=== PATIENT | male | born 1960 | race Caucasian/White ===

== ENCOUNTER 2017-06-12 14:28 | Inpatient (IN) | payer OTHER ==
[~2017-06-12] VITALS: Ht 175.3 cm; Wt 112.4 kg
[2017-06-12 15:17] VITALS: BP 137/85; PULSE 84; RESP 16; TEMP 97.9; O2SAT 98
--- NOTE | 2017-06-12 16:40 | PD ---
HPI Chief Complaint: Psychiatric Symptoms Time Seen by Provider: 14:45 Travel History International Travel<30 days: No Contact w/Intl Traveler<30days: No Traveled to known affect area: No History of Present Illness HPI 56-year-old male presents under Yeh act from the [place]. According to the Yeh act report the " states he is ready to , has a plan to shoot himself in the head, has a gun, gave the gun to his sister. Had previous attempt in the late 80s went to [facility] states all medications have been attempted , states psychiatry wanted to try electric shock, and "I freaked."" The patient does admit to feeling suicidal and does want to shoot himself in the head. He has history of suicidal attempt. He does state he did give his sister a gun. He denies homicidal ideations. Denies visual or auditory hallucinations. Reports smoking marijuana legally in [place]. Denies other illicit drug use. Duration is unknown. Severity is severe. No known aggravating or relieving factors. Has no other emergent medical complaints. History of hypertension. Says he hasn't taken medications for 3 years. He is not have an established primary care provider. No other modifying factors or associated signs and symptoms. PFSH Past Medical History Cardiovascular Problems: Yes ([place] in [place] w[place], [place] w/st[place] placement) Social History Tobacco Use: No Review of Systems Except as stated in HPI: all other systems reviewed are Neg Physical Exam Narrative GENERAL: Well-nourished, well-developed male patient, in no acute distress SKIN: Warm and dry. HEAD: Atraumatic. Normocephalic. EYES: Pupils equal and round. ENT: Mucosa pink and moist. NECK: Supple. Trachea midline. CARDIOVASCULAR: Regular rate and rhythm. No murmur appreciated. RESPIRATORY: No accessory muscle use. Clear to auscultation. Breath sounds equal bilaterally. GASTROINTESTINAL: Abdomen soft, non-tender, nondistended. Hepatic and splenic margins not palpable. Bowel sounds are active 4 quadrants. MUSCULOSKELETAL: No obvious deformities. No clubbing. No cyanosis. No edema. NEUROLOGICAL: Awake and alert. Oriented 3. No obvious cranial nerve deficits. Motor grossly within normal limits. Normal speech. Moves all extremities. 5/5 strength to all extremities. PSYCHIATRIC: No delusional thought processes. No hallucinations. Data Data Last Documented VS Vital Signs Date Time Temp Pulse Resp B/P (MAP) Pulse Ox O2 Delivery O2 Flow Rate FiO2 06/12/17 15:17 97.9 84 16 137/85 (102) 98 Room Air Orders Orders Complete Blood Count With Diff (06/12/17 14:45) Comprehensive Metabolic Panel (06/12/17 14:45) Psych Screen (06/12/17 14:45) Drug Screen, Random Urine (06/12/17 14:45) Alcohol (Ethanol) (06/12/17 14:45) Salicylates (Aspirin) (06/12/17 14:45) Tylenol (Acetaminophen) (06/12/17 14:45) MDM Medical Decision Making Medical Screen Exam Complete: Yes Emergency Medical Condition: Yes Medical Record Reviewed: Yes Differential Diagnosis Medical clearance for psychiatric evaluation, depression, suicidal ideation Narrative Course Patient presents under a Yeh act. Physical examination and vital signs are essentially unremarkable. Patient has no medical complaints to report. Psych screen has been ordered. If the laboratory results are unremarkable, the patient will be medically cleared for psychiatric evaluation and disposition. Diagnosis Primary Impression: Medical clearance for psychiatric admission Condition: Stable Shama Randall [facility] Jun 12, 2017 16:40
[2017-06-12 17:30] VITALS: BP 133/77; PULSE 70; RESP 20; O2SAT 97
[2017-06-12 17:31] LABS: AUTOMATED NEUTROPHIL # 7.6 TH/MM3 (1.8-7.7); BASOPHIL # 0.1 TH/MM3 (0-0.2); BASOPHIL % 0.5 % (0.0-2.0); EOSINOPHIL # 0.1 TH/MM3 (0-0.4); EOSINOPHIL % 1.2 % (0.0-4.0); HEMATOCRIT 49.4 % (39.0-51.0); HEMOGLOBIN 17.3 GM/DL (13.0-17.0); LYMPH % 24.1 % (9.0-44.0); LYMPHOCYTE # 2.7 TH/MM3 (1.0-4.8); MEAN CELL VOLUME 96.2 FL (80.0-100.0); MEAN CORPUSCULAR HEMOGLOBIN 33.7 PG (27.0-34.0); MEAN PLATELET VOLUME 8.3 FL (7.0-11.0); MONO % 5.9 % (0.0-8.0); MONOCYTE # 0.6 TH/MM3 (0-0.9); NEUT % 68.3 % (16.0-70.0); PLATELET COUNT 197 TH/MM3 (150-450); RED BLOOD COUNT 5.13 MIL/MM3 (4.50-5.90); RED CELL DISTRIBUTION WIDTH 13.5 % (11.6-17.2); WHITE BLOOD COUNT 11.1 TH/MM3 (4.0-11.0)
[2017-06-12 17:56] LABS: ALBUMIN 4.1 GM/DL (3.4-5.0); ALT (GPT) 37 U/L (12-78); AST (GOT) 37 U/L (15-37); BICARBONATE 26.3 MEQ/L (21.0-32.0); BLOOD UREA NITROGEN 12 MG/DL (7-18); CALCIUM 9.7 MG/DL (8.5-10.1); CHLORIDE 105 MEQ/L (98-107); CREATININE 1.01 MG/DL (0.60-1.30); GLOMERULAR FILTRATION RATE 76 ML/MIN (>89); GLUCOSE,RANDOM 86 MG/DL (74-106); SODIUM (NA) 140 MEQ/L (136-145)
[2017-06-12 18:02] LABS: ALKALINE PHOSPHATASE 106 U/L (45-117); TOTAL BILIRUBIN ADULT 0.8 MG/DL (0.2-1.0); TOTAL PROTEIN 7.9 GM/DL (6.4-8.2)
[2017-06-12 18:12] LABS: ACETAMINOPHEN LESS THAN 2.0 MCG/ML (10.0-30.0)
[2017-06-12] MEDS ORDERED: LORazepam 1 MG TAB PO PRN (20:45)
[2017-06-12] MEDS ORDERED: LORazepam 2 MG/ML VIAL IM PRN (20:45)
[2017-06-12] MEDS ORDERED: ACETAMINOPHEN 325 MG TAB PO PRN (20:45)
[2017-06-12] MEDS ORDERED: MAGNESIUM HYDROXIDE SUSP 30 ML CUP PO PRN (20:45)
[2017-06-12] MEDS ORDERED: ALUMINUM/MAGNESIUM/SIMETH 30 ML CUP PO PRN (20:45)
[2017-06-12] MEDS ORDERED: REMOVE OLD NICOTINE PATCH T-DERMAL SCH (21:00)
[2017-06-12] MEDS ORDERED: traZODone HCL 100 MG TAB PO SCH (21:00)
[2017-06-12 22:20] VITALS: BP 146/80; PULSE 78; RESP 16; TEMP 98.1; O2SAT 96
[2017-06-13 05:40] VITALS: BP 97/55; PULSE 69; RESP 16; TEMP 98; O2SAT 95
[2017-06-13] MEDS ORDERED: NICOTINE 21 MG/24 HR PATCH T-DERMAL SCH (09:00)
[2017-06-13 10:40] LABS: BICARBONATE 24.6 MEQ/L (21.0-32.0); BLOOD UREA NITROGEN 15 MG/DL (7-18); CALCIUM 9.1 MG/DL (8.5-10.1); CHLORIDE 107 MEQ/L (98-107); CHOLESTEROL 126 MG/DL (120-200); CREATININE 1.05 MG/DL (0.60-1.30); GLOMERULAR FILTRATION RATE 73 ML/MIN (>89); GLUCOSE,RANDOM 119 MG/DL (74-106); SODIUM (NA) 140 MEQ/L (136-145); TRIGLYCERIDES 181 MG/DL (42-150)
[2017-06-13 10:43] LABS: CHOLESTEROL/ HDL RATIO 4.21 RATIO; HDL CHOLESTEROL 29.9 MG/DL (40.0-60.0); LDL CHOLESTEROL 60 MG/DL (0-99)
--- NOTE | 2017-06-13 13:04 | HHI.HP ---
Provisional Diagnosis Admission Date Jun 12, 2017 at 20:04 [place] I. 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 Express and informed consent means consent voluntarily given in writing, by a competent person, after sufficient explanation and disclosure of the subject matter involved to enable the person to make a knowing and willful decision without any element of force, fraud, deceit, duress, or other form of constraint or coercion. This person is 18 years of age or older, is not now known to be incompetent to consent to treatment with a guardian advocate, and does not have a health care surrogate or proxy currently making medical treatment decisions. I have found this person to be one of the following: [] Competent to provide express and informed consent, as defined above, for voluntary admission to this facility and is competent to provide express and informed consent for treatment. He/she has the consistent capacity to make well reasoned, willful, and knowing decisions concerning his or her medical or mental health treatment. The person fully and consistently understands the purpose of the admission for examination/placement and is fully capable of personally exercising all rights assured [place] [] Incompetent to provide express and informed consent to voluntary admission, and this is incompetent to provide express and informed consent to treatment. The person must be transferred to involuntary status and a petition for a guardian advocate filed with the Circuit Court. [xxxx] Refusing to provide express and informed consent to voluntary admission but is competent to provide express and informed consent for treatment. The person must be discharged or transferred to involuntary status. Form shall be completed within 24 hours of a person's arrival at the receiving facility and filed in the clinical record of each person: 1. Admitted on a voluntary basis 2. Permitted to provide express and informed consent to his/her own treatment 3. Allowed to transfer from involuntary to voluntary status 4. Prior to permitting a person to consent to his or her own treatment after having been previously found incompetent to consent to treatment. History of Present Illness Capacity: Lacks Capacity (patient lacks capacity to sign for admission, patient has capacity to sign for medications and treatment) Psych Chief Complaint: depression with suicidal ideation intent and plan HPI Patient is a 56-year-old white male who comes here under Yeh act by the [place] [employer] Dana Tang dated 06/12/13@1330 p.m. the document reviewed and agreed with sitting major depressive disorder states she is ready to has plan to shoot himself in the head as a gun give the done to assist her had previous attempts in the past late 80s went to [facility] states all medications have been attempted states psychiatry wanted to try electric shock" I freaked" patient seen screened in the ED urine toxicology positive for marijuana. At the present time patient sitting quietly in his room on 2600 nurse hermila present throughout session. Patient gives of multiple year history of depression going back to young adulthood. He has been seen in the for this. Patient is a [employer] and also works for the [employer] after. He states he is seen by multiple psychiatrist is been placed on trials of multiple antidepressants including Elavil and Seroquel without significant success. He denies prior inpatient hospitalization. He does acknowledge a past history of opiate abuse 24 detox in the late 80s or early 90s area he denies any more recent alcohol use but acknowledges occasional marijuana use. Patient states he was working the [place] area until he quit his job a year or 2 ago. Took prison money and went to [place]. He was running out of money there and return home to [place] to his house is being foreclosed and had no energy and no water. At that time his depression became worse with hypersomnia with decreased energy. Marked a.m. anergy. States marked increased anhedonia. Decreased concentration and attention decreased tolerance with increased irritability, denied any other substance use except the marijuana. Denied any voices or visions with this. He did acknowledge increased suicidal ideation intent to the point he would take the suicide pill if offered. He states he has had suicide ideation in the past. He did have her friend who recommended that he relocated here to [place] to be near his mother sister and other relatives. He drove down here with a loaded weapon in his car but they given to his sister. He arrived here in town with of the last 48 hours. At this time patient does meet criteria for involuntary psychiatric hospitalization on the Yeh act I'll do first opinion request second opinion. I feel does have capacity to sign for his medications. Discussed various medication options will start patient on Lexapro 10 mg the morning and Abilify 10 mg in the evening. Patient did give us permission to speak with his family need to discuss with them treatment treatment options for this gentleman. Review of Systems Constitutional: DENIES: Diaphoretic episodes, Fatigue, Fever, Weight gain, Weight loss, Chills, Dizziness, Change in appetite, Night Sweats Endocrine: DENIES: Heat/cold intolerance, Polydipsia, Polyuria, Polyphagia Eyes: DENIES: Blurred vision, Diplopia, Eye inflammation, Eye pain, Vision loss , Photosensitivity, Double Vision Ears, nose, mouth, throat: DENIES: Tinnitus, Hearing loss, Vertigo, Nasal discharge, Oral lesions, Throat pain, Hoarseness, Ear Pain, Running Nose, Epistaxis, Sinus Pain, Toothache, Odynophagia Respiratory: DENIES: Apneas, Cough, Snoring, Wheezing, Hemoptysis, Sputum production, Shortness of breath Cardiovascular: DENIES: Chest pain, Palpitations, Syncope, Dyspnea on Exertion , PND, Lower Extremity Edema, Orthopnea, Claudication Gastrointestinal: DENIES: Abdominal pain, Black stools, Bloody stools, Constipation, Diarrhea, Nausea, Vomiting, Difficulty Swallowing, Anorexia Genitourinary: DENIES: Sexual dysfunction, Urinary frequency, Urinary incontinence, Urgency, Hematuria, Dysuria, Nocturia, Penile Discharge, Testicular Pain, Testicular Swelling Musculoskeletal: DENIES: Joint pain, Muscle aches, Stiffness, Joint Swelling, Back pain, Neck pain Integumentary: DENIES: Abnormal pigmentation, Nail changes, Pruritus, Rash Hematologic/lymphatic: DENIES: Bruising, Lymphadenopathy Immunologic/allergic: DENIES: Eczema, Urticaria Psychiatric: COMPLAINS OF: Depression, Suicidal Ideation Past Psych History Psychological trauma history Denies Violence risk - others (6 mos) Low Violence risk - self (6 mos) High Substance Abuse History Drugs/Alcohol past 12 months Past history opiates abuse many years ago now and occasional marijuana user Past Family Social History Coded Allergies: No Known Allergies (Unverified , 06/12/17) Past Medical History Patient history heart attack in the past with triple bypass in 2012 Current Medications Medications (Trade) Dose Ordered Sig/Juan Route Start Time Stop Time Status Last Admin (Desyrel) 100 mg HS PO 06/12/17 21:00 06/12/17 21:35 (Ativan) 1 mg Q6H PRN PO 12/28/17 20:45 06/12/17 21:35 (Ativan Inj) 1 mg Q6H PRN IM 06/12/17 20:45 (Tylenol) 650 mg Q4H PRN PO 06/12/17 20:45 (Milk Of Magnesia Liq) 30 ml DAILY PRN PO 06/12/17 20:45 (Mag-Al Plus Susp Liq) 30 ml Q6H PRN PO 06/12/17 20:45 (Habitrol 21 Mg Patch.24 Hr) 1 patch DAILY T-DERMAL 06/13/17 09:00 06/13/17 09:00 Miscellaneous Information 1 HS T-DERMAL 06/12/17 21:00 Family Psych History Patient states father may have been depressed Social History Patient single was becoming homeless now relocating attempt to be close with family Patient's Strengths (min. 2) Patient verbal labile axis healthcare calm and cooperative Physical Exam Patient seen and screened in ED exam reviewed and agreed with. Patient sitting quietly in his room is in no acute distress, no rash or distress, no complaints of abdominal pain. Patient moves all 4 extremities without difficulty no abnormal motor movements noted Vital Signs Vital Signs Date Time Temp Pulse Resp B/P (MAP) Pulse Ox O2 Delivery O2 Flow Rate FiO2 06/13/17 05:40 98.0 69 16 97/55 (69) 95 06/12/17 17:30 Room Air I/O 06/13/17 06/13/17 06/14/17 08:00 16:00 00:00 Intake Total 720 ml Balance 720 ml Lab Results Test 06/12/17 15:50 06/12/17 17:05 06/13/17 08:35 Urine Opiates Screen NEG Urine Barbiturates Screen NEG Urine Amphetamines Screen NEG Urine Benzodiazepines Screen NEG Urine Cocaine Screen NEG Urine Cannabinoids Screen POS White Blood Count 11.1 TH/MM3 Red Blood Count 5.13 MIL/MM3 Hemoglobin 17.3 GM/DL Hematocrit 49.4 % Mean Corpuscular Volume 96.2 FL Mean Corpuscular Hemoglobin 33.7 PG Mean Corpuscular Hemoglobin Concent 35.0 % Red Cell Distribution Width 13.5 % Platelet Count 197 TH/MM3 Mean Platelet Volume 8.3 FL Neutrophils (%) (Auto) 68.3 % Lymphocytes (%) (Auto) 24.1 % Monocytes (%) (Auto) 5.9 % Eosinophils (%) (Auto) 1.2 % Basophils (%) (Auto) 0.5 % Neutrophils # (Auto) 7.6 TH/MM3 Lymphocytes # (Auto) 2.7 TH/MM3 Monocytes # (Auto) 0.6 TH/MM3 Eosinophils # (Auto) 0.1 TH/MM3 Basophils # (Auto) 0.1 TH/MM3 CBC Comment AUTO DIFF Differential Comment AUTO DIFF CONFIRMED Platelet Estimate NORMAL Platelet Morphology Comment NORMAL Blood Urea Nitrogen 12 MG/DL 15 MG/DL Creatinine 1.01 MG/DL 1.05 MG/DL Random Glucose 86 MG/DL 119 MG/DL Total Protein 7.9 GM/DL Albumin 4.1 GM/DL Calcium Level 9.7 MG/DL 9.1 MG/DL Alkaline Phosphatase 106 U/L Aspartate Amino Transf (AST/SGOT) 37 U/L Alanine Aminotransferase (ALT/SGPT) 37 U/L Total Bilirubin 0.8 MG/DL Sodium Level 140 MEQ/L 140 MEQ/L Potassium Level 4.2 MEQ/L 3.7 MEQ/L Chloride Level 105 MEQ/L 107 MEQ/L Carbon Dioxide Level 26.3 MEQ/L 24.6 MEQ/L Anion Gap 9 MEQ/L 8 MEQ/L Estimat Glomerular Filtration Rate 76 ML/MIN 73 ML/MIN Salicylates Level 2.0 MG/DL Acetaminophen Level LESS THAN 2.0 MCG/ML Ethyl Alcohol Level LESS THAN 3 MG/DL Triglycerides Level 181 MG/DL Cholesterol Level 126 MG/DL LDL Cholesterol 60 MG/DL HDL Cholesterol 29.9 MG/DL Cholesterol/HDL Ratio 4.21 RATIO Mental Status Examination Appearance: Appropriate Consciousness: Alert Orientation: x4 Motor Activity: Normal gait Speech: Unremarkable Language: Adequate Fund of Knowledge: Adequate Attention and Concentration: Adequate Memory: Unremarkable Mood: Sad, Other (2-3+ psychomotor retarded) Affect: Other (marked decrease range of motion intensity) Thought Process & Associations: Intact Thought Content: Appropriate Hallucination Type: None Delusion Type: None Suicidal Ideation: Yes Suicidal Plan: Yes (patient will take suicide pill if offered) Suicidal Intention: Yes Homicidal Ideation: No Homicidal Plan: No Homicidal Intention: No Insight: Fair Judgment: Poor Assessment & Plan Problem List: (1) Severe recurrent major depression without psychotic features ICD Codes: F33.2 - Major depressive disorder, recurrent severe without psychotic features Assessment & Plan Estimated LOS: 3-5 days patient meets criteria for involuntary psychiatric hospitalization of the Yeh act I'll do first opinion per second opinion. I feel he has capacity significant medications. We'll start patient on Lexapro 10 mg the morning and Abilify 10 mg in the evening. Regular counselor attempt to patient's family to arrange for meeting after the holidays Discharge Planning To be determined Request HC Surrog/Guard Advoc?: No Henrry Han MD Jun 13, 2017 13:04
[2017-06-13] MEDS: ESCITALOPRAM OXALATE 10 MG TAB PO SCH (14:00)
--- NOTE | 2017-06-13 14:11 | PD.CONS ---
HPI Service [facility] Consult Requested By Dr. Han Reason for Consult Medical management Primary Care Physician [facility] Diagnoses: (1) Coronary artery disease (2) Severe recurrent major depression without psychotic features History of Present Illness The patient is a 56 year old male admitted to inpatient psychiatry for management of major depression. He states that he had a heart attack in 2005 and had 3x bypass at that time. Denies any other medical problems. He stopped seeing doctors "a long time ago" and therefore has not been on any chronic medications. Denies history of diabetes, hypertension. He has no physical complaints at this time. Review of Systems Constitutional: DENIES: Fever, Chills, Night Sweats Eyes: DENIES: Blurred vision, Vision loss Ears, nose, mouth, throat: DENIES: Hearing loss Respiratory: DENIES: Cough, Wheezing, Sputum production, Shortness of breath Cardiovascular: DENIES: Chest pain, Palpitations, Dyspnea on Exertion, Lower Extremity Edema Gastrointestinal: DENIES: Abdominal pain, Constipation, Diarrhea, Nausea, Vomiting Genitourinary: DENIES: Urinary frequency, Urinary incontinence, Urgency, Hematuria, Dysuria, Nocturia Musculoskeletal: DENIES: Joint pain, Muscle aches Integumentary: DENIES: Pruritus, Rash Hematologic/lymphatic: DENIES: Bruising Neurologic: DENIES: Headache Psychiatric: COMPLAINS OF: Depression Past Family Social History Allergies: Coded Allergies: No Known Allergies (Unverified , 06/12/17) Past Medical History Depression Coronary artery disease History of diverticulitis Past Surgical History CABG 3 vessels in 2005 Reported Medications None Family History Hypertension Diabetes mellitus Coronary artery disease Social History Smokes 2 packs per day. Denies alcohol use. Admits to marijuana use. History of IV drug abuse in the 1980s. Physical Exam Vital Signs Vital Signs Date Time Temp Pulse Resp B/P (MAP) Pulse Ox O2 Delivery O2 Flow Rate FiO2 06/13/17 05:40 98.0 69 16 97/55 (69) 95 06/12/17 22:20 98.1 78 16 146/80 (102) 96 06/12/17 21:12 06/12/17 17:30 70 20 133/77 (95) 97 Room Air 06/12/17 15:17 97.9 84 16 137/85 (102) 98 Room Air Physical Exam GENERAL: Overweight male in no acute distress. HEENT: Normocephalic, atraumatic. Pupils equal, round and reactive. Extraocular movements intact. No scleral icterus. No injection or drainage. Oropharynx is clear. Mucous membranes are moist. CARDIOVASCULAR: Regular rate and rhythm without murmurs, gallops, or rubs. RESPIRATORY: Clear to auscultation. No wheezes, rales, or rhonchi. Breathing is non-labored. GASTROINTESTINAL: Abdomen soft, non-tender, nondistended. EXTREMITIES: No lower extremity edema. No calf tenderness. PSYCH: Alert and oriented x 3. Laboratory Laboratory Tests Test 06/12/17 15:50 06/12/17 17:05 06/13/17 08:35 Urine Opiates Screen NEG Urine Barbiturates Screen NEG Urine Amphetamines Screen NEG Urine Benzodiazepines Screen NEG Urine Cocaine Screen NEG Urine Cannabinoids Screen POS White Blood Count 11.1 Red Blood Count 5.13 Hemoglobin 17.3 Hematocrit 49.4 Mean Corpuscular Volume 96.2 Mean Corpuscular Hemoglobin 33.7 Mean Corpuscular Hemoglobin Concent 35.0 Red Cell Distribution Width 13.5 Platelet Count 197 Mean Platelet Volume 8.3 Neutrophils (%) (Auto) 68.3 Lymphocytes (%) (Auto) 24.1 Monocytes (%) (Auto) 5.9 Eosinophils (%) (Auto) 1.2 Basophils (%) (Auto) 0.5 Neutrophils # (Auto) 7.6 Lymphocytes # (Auto) 2.7 Monocytes # (Auto) 0.6 Eosinophils # (Auto) 0.1 Basophils # (Auto) 0.1 CBC Comment AUTO DIFF Differential Comment AUTO DIFF CONFIRMED Platelet Estimate NORMAL Platelet Morphology Comment NORMAL Blood Urea Nitrogen 12 15 Creatinine 1.01 1.05 Random Glucose 86 119 Total Protein 7.9 Albumin 4.1 Calcium Level 9.7 9.1 Alkaline Phosphatase 106 Aspartate Amino Transf (AST/SGOT) 37 Alanine Aminotransferase (ALT/SGPT) 37 Total Bilirubin 0.8 Sodium Level 140 140 Potassium Level 4.2 3.7 Chloride Level 105 107 Carbon Dioxide Level 26.3 24.6 Anion Gap 9 8 Estimat Glomerular Filtration Rate 76 73 Salicylates Level 2.0 Acetaminophen Level LESS THAN 2.0 Ethyl Alcohol Level LESS THAN 3 Triglycerides Level 181 Cholesterol Level 126 LDL Cholesterol 60 HDL Cholesterol 29.9 Cholesterol/HDL Ratio 4.21 Result Diagram: 06/12/17 1705 06/13/17 0835 Assessment and Plan Assessment and Plan 1. Major depressive disorder, suicidal ideation: Management per psychiatry. 2. Coronary artery disease: Currently asymptomatic. The patient has not been following up with his physician for a number of years. He does not take any medications regularly. 3. Tobacco abuse: Counseled. Patient is not interested in quitting. [facility] will sign off. Please reconsult if needed. Matheus Small MD Jun 13, 2017 14:11
[2017-06-13 15:29] LABS: HEMOGLOBIN A1C 4.8 % (4.3-6.0)
[2017-06-13 18:00] VITALS: BP 109/66; PULSE 85; RESP 18; TEMP 97.6; O2SAT 96
[2017-06-13] MEDS: traZODone HCL 100 MG TAB PO PRN (21:57)
[2017-06-13] MEDS: ARIPiprazole 10 MG TAB PO SCH (21:57)
[2017-06-14 06:30] VITALS: BP 111/54; PULSE 69; RESP 16; TEMP 98.4; O2SAT 98
[2017-06-14] MEDS: ESCITALOPRAM OXALATE 10 MG TAB PO SCH (08:39)
--- NOTE | 2017-06-14 14:52 | HHI.PYPN ---
Subjective Chief Complaint: depression with suicidal ideation intent and plan Mental Status Examination Appearance: Appropriate Consciousness: Alert Orientation: x4 Motor Activity: Normal gait Speech: Unremarkable Language: Adequate Fund of Knowledge: Adequate Attention and Concentration: Adequate Memory: Unremarkable Mood: Sad, Other (2-3+ psychomotor retarded) Affect: Other (marked decrease range of motion intensity) Thought Process & Associations: Intact Thought Content: Appropriate Hallucination Type: None Delusion Type: None Suicidal Ideation: Yes Suicidal Plan: Yes (patient will take suicide pill if offered) Suicidal Intention: Yes Homicidal Ideation: No Homicidal Plan: No Homicidal Intention: No Insight: Fair Judgment: Poor Results Vitals/IOs Vital Signs Date Time Temp Pulse Resp B/P (MAP) Pulse Ox O2 Delivery O2 Flow Rate FiO2 06/14/17 06:30 98.4 69 16 111/54 (73) 98 06/12/17 17:30 Room Air Intake and Output 06/14/17 06/14/17 06/15/17 08:00 16:00 00:00 Intake Total 240 ml 240 ml Balance 240 ml 240 ml Assessment & Plan Problem List: (1) Severe recurrent major depression without psychotic features ICD Codes: F33.2 - Major depressive disorder, recurrent severe without psychotic features Assessment & Plan Estimated LOS: days Request HC Surrog/Guard Advoc?: Aileen Carranza MD Jun 14, 2017 14:52
[2017-06-14 18:27] VITALS: BP 157/87; PULSE 81; RESP 16; TEMP 97.8; O2SAT 97
[2017-06-14] MEDS: ARIPiprazole 10 MG TAB PO SCH (20:38)
[2017-06-14] MEDS: traZODone HCL 100 MG TAB PO PRN (20:38)
--- NOTE | 2017-06-14 20:52 | PD.PSY.CON ---
Provisional Diagnosis Admission Date Jun 12, 2017 at 20:04 [place]. 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 Chart reviewed. Pt is a 56YOWM admitted to [facility] [place] under a BA after [facility] Pt seen and discussed with staff. He continues to endorse suicidal ideation with plan. He has numerous stressors including financial and feels hopeless and helpless. He is compliant with medications and denies side effects. Past Family Social History Coded Allergies: No Known Allergies (Unverified , 06/12/17) Current Medications Medications (Trade) Dose Ordered Sig/Juan Route Start Time Stop Time Status Last Admin (Tylenol) 650 mg Q4H PRN PO 06/12/17 20:45 (Milk Of Magnesia Liq) 30 ml DAILY PRN PO 06/12/17 20:45 (Mag-Al Plus Susp Liq) 30 ml Q6H PRN PO 06/12/17 20:45 (Desyrel) 100 mg HS PRN PO 06/13/17 21:00 06/14/17 20:38 (Atarax) 50 mg Q6H PRN PO 06/13/17 12:45 (Lexapro) 10 mg DAILY PO 06/13/17 14:00 06/14/17 08:39 (Abilify) 10 mg HS PO 06/13/17 21:00 06/14/17 20:38 Social History financial stress, facing foreclosure. Patient's Strengths (min. 2) Patient verbal labile axis healthcare calm and cooperative Physical Exam Vital Signs Vital Signs Date Time Temp Pulse Resp B/P (MAP) Pulse Ox O2 Delivery O2 Flow Rate FiO2 06/14/17 18:27 97.8 81 16 157/87 (110) 97 06/12/17 17:30 Room Air I/O 06/14/17 06/14/17 06/14/17 07:59 15:59 23:59 Intake Total 240 ml 240 ml 240 ml Balance 240 ml 240 ml 240 ml Mental Status Examination Appearance: Appropriate Consciousness: Alert Orientation: x4 Motor Activity: Normal gait Speech: Unremarkable Language: Adequate Fund of Knowledge: Adequate Attention and Concentration: Adequate Memory: Unremarkable Mood: Sad, Other (2-3+ psychomotor retarded) Affect: Other (marked decrease range of motion intensity) Thought Process & Associations: Intact Thought Content: Appropriate Hallucination Type: None Delusion Type: None Suicidal Ideation: Yes Suicidal Plan: Yes (patient will take suicide pill if offered) Suicidal Intention: Yes Homicidal Ideation: No Homicidal Plan: No Homicidal Intention: No Insight: Fair Judgment: Poor Assessment & Plan Problem List: (1) Severe recurrent major depression without psychotic features ICD Codes: F33.2 - Major depressive disorder, recurrent severe without psychotic features Assessment & Plan I agree that pt meets involuntary hospitalization criteria due to active suicidal ideations. Estimated LOS: days Request HC Surrog/Guard Advoc?: No Aileen Santos MD Jun 14, 2017 20:52
[2017-06-15] MEDS: hydrOXYzine HCL 50 MG TAB PO PRN ×2 (02:31→21:43)
[2017-06-15 06:10] VITALS: BP 107/58; PULSE 67; RESP 17; TEMP 97.7; O2SAT 95
[2017-06-15] MEDS: ESCITALOPRAM OXALATE 10 MG TAB PO SCH (08:40)
--- NOTE | 2017-06-15 14:12 | HHI.PYPN ---
Subjective Chief Complaint: depression with suicidal ideation intent and plan Remarks Pt seen and idscussed with staff. He slept well last night. He remains depressed but has been coming out of his room more. Little interaction with staff or peers. He reports SI persists but is decreased. Mental Status Examination Appearance: Appropriate Consciousness: Alert Orientation: x4 Motor Activity: Normal gait Speech: Unremarkable Language: Adequate Fund of Knowledge: Adequate Attention and Concentration: Adequate Memory: Unremarkable Mood: Sad, Other (2-3+ psychomotor retarded) Affect: Other (marked decrease range of motion intensity) Thought Process & Associations: Intact Thought Content: Appropriate Hallucination Type: None Delusion Type: None Suicidal Ideation: Yes (decreasing) Suicidal Plan: No Suicidal Intention: No Homicidal Ideation: No Homicidal Plan: No Homicidal Intention: No Insight: Fair Judgment: Poor Results Vitals/IOs Vital Signs Date Time Temp Pulse Resp B/P (MAP) Pulse Ox O2 Delivery O2 Flow Rate FiO2 06/15/17 06:10 97.7 67 17 107/58 (74) 95 06/12/17 17:30 Room Air Assessment & Plan Problem List: (1) Severe recurrent major depression without psychotic features ICD Codes: F33.2 - Major depressive disorder, recurrent severe without psychotic features Assessment & Plan Continue current tx plan. Estimated LOS: days Justification for Cont. Inpt. impairments in safety Request HC Surrog/Guard Advoc?: No Aileen Santos MD Jun 15, 2017 14:12
[2017-06-15 17:17] VITALS: BP 145/85; PULSE 70; RESP 18; TEMP 97.5; O2SAT 98
[2017-06-15] MEDS: ARIPiprazole 10 MG TAB PO SCH (21:00)
[2017-06-16 05:59] VITALS: BP 122/73; PULSE 73; RESP 18; TEMP 97.3; O2SAT 96
[2017-06-16] MEDS: ESCITALOPRAM OXALATE 10 MG TAB PO SCH (09:43)
[2017-06-16] MEDS: hydrOXYzine HCL 50 MG TAB PO PRN ×2 (13:58→20:52)
--- NOTE | 2017-06-16 13:58 | HHI.PYPN ---
Subjective Chief Complaint: depression with suicidal ideation intent and plan Remarks Patient seen and examined with nurse in coverage for Dr. Han. Chart reviewed. Case discussed with nursing staff. On my examination today, the patient remains depressed and hopeless. He does say that he is no longer thinking about how he might actively hurt himself but is instead trying to identify a reason to live. He has not come up with any such reason yet, and we brainstormed possible reasons. No psychotic symptoms. Patient does complain of feeling quite anxious and irritable because his roommate's behavior is quite disruptive. He knows that roommate has psychiatric issues but finds his eccentricities difficult to tolerate. I have asked the patient's nurse to try to move either the patient or roommate out of the room. No HI. Denies side effects from medications. Says that he is feeling so anxious as a result of roommate's behavior that he has been having palpitations. No other physical complaints. Review of Systems Except as stated in HPI: all other systems reviewed are Neg Mental Status Examination Appearance: Appropriate Consciousness: Alert Orientation: x4 Motor Activity: Normal gait, Other (patient is a little bit visibly tremulous with anxiety.) Speech: Unremarkable Language: Adequate Fund of Knowledge: Adequate Attention and Concentration: Adequate Memory: Unremarkable Mood: Sad, Anxious Affect: Anxious, Other (restricted) Thought Process & Associations: Intact, Logical, Linear Thought Content: Appropriate Hallucination Type: None Delusion Type: None Suicidal Ideation: No Suicidal Plan: No Suicidal Intention: No Homicidal Ideation: No Homicidal Plan: No Homicidal Intention: No Insight: Fair Judgment: Poor Results Labs Labs reviewed. Vitals/IOs Vital Signs Date Time Temp Pulse Resp B/P (MAP) Pulse Ox O2 Delivery O2 Flow Rate FiO2 06/16/17 05:59 97.3 73 18 122/73 (89) 96 06/12/17 17:30 Room Air Assessment & Plan Problem List: (1) Severe recurrent major depression without psychotic features ICD Codes: F33.2 - Major depressive disorder, recurrent severe without psychotic features Assessment & Plan Continue current psychotropics as ordered. Check EKG as patient complains of palpitations [UPDATE: NSR with QTcH 413ms.]. Ativan 1mg PO once. Continue to monitor on the inpatient unit. Continue other medications and care as ordered. Justification for Cont. Inpt. Concern for impairment in safety. High risk for decompensation in less restrictive environment. Discharge Planning Per Dr. Han Request HC Surrog/Guard Advoc?: No Ankur Freedman MD Jun 16, 2017 13:58
[2017-06-16] MEDS ORDERED: LORazepam 1 MG TAB PO ONE (14:15)
[2017-06-16 17:00] VITALS: BP 138/70; PULSE 70; RESP 16; TEMP 97.3; O2SAT 96
[2017-06-16] MEDS: ARIPiprazole 10 MG TAB PO SCH (20:52)
[2017-06-17 07:00] VITALS: BP 127/68; PULSE 75; RESP 18; TEMP 97.4; O2SAT 98
[2017-06-17] MEDS: ESCITALOPRAM OXALATE 10 MG TAB PO SCH (08:47)
--- NOTE | 2017-06-17 15:15 | HHI.PYPN ---
Subjective Chief Complaint: depression with suicidal ideation intent and plan Remarks Patient seen today with nurse hermila, chart review, patient compliant medications. Patient continues depressed though the suicidality is softening is showing slight increase improvement in his affect and is eye contact. Easily stable today to discuss possible other living arrangements and discharge plans. It appears she has some hope of returning to stay with his mother and sister. He does seem to have affection for pets primarily dogs. They could be used to our advantage. For now will increase Lexapro to 20 mg daily continue treatment Review of Systems Except as stated in HPI: all other systems reviewed are Neg Mental Status Examination Appearance: Appropriate Consciousness: Alert Orientation: x4 Motor Activity: Normal gait, Other (patient is a little bit visibly tremulous with anxiety.) Speech: Unremarkable Language: Adequate Fund of Knowledge: Adequate Attention and Concentration: Adequate Memory: Unremarkable Mood: Sad, Anxious Affect: Anxious, Other (restricted) Thought Process & Associations: Intact, Logical, Linear Thought Content: Appropriate Hallucination Type: None Delusion Type: None Suicidal Ideation: No Suicidal Plan: No Suicidal Intention: No Homicidal Ideation: No Homicidal Plan: No Homicidal Intention: No Insight: Fair Judgment: Poor Results Vitals/IOs Vital Signs Date Time Temp Pulse Resp B/P (MAP) Pulse Ox O2 Delivery O2 Flow Rate FiO2 06/17/17 07:00 97.4 75 18 127/68 (87) 98 Intake and Output 06/17/17 06/17/17 06/18/17 08:00 16:00 00:00 Intake Total 480 ml Balance 480 ml Assessment & Plan Problem List: (1) Severe recurrent major depression without psychotic features ICD Codes: F33.2 - Major depressive disorder, recurrent severe without psychotic features Assessment & Plan Estimated LOS: days patient is quite depressed and anhedonic, though slightly improved. She medication adjustment above Justification for Cont. Inpt. At this time patient decompensated placed in lower level of care Discharge Planning Posture return home with mother and sister Request HC Surrog/Guard Advoc?: No Henrry Han MD Jun 17, 2017 15:15
--- NOTE | 2017-06-17 16:53 | EKG ---
Date Performed: 06/16/2017 Time Performed: 14:26:34 PTAGE: 56 years EKG: Sinus rhythm NORMAL ECG NO PREVIOUS TRACING DOCTOR: Gloria Dwyer Interpretating Date/Time 06/17/2017 16:51:45
[2017-06-17] MEDS: hydrOXYzine HCL 50 MG TAB PO PRN ×2 (17:05→21:30)
[2017-06-17 18:48] VITALS: BP 122/60; PULSE 68; RESP 18; TEMP 97.8; O2SAT 96
[2017-06-17] MEDS: ARIPiprazole 10 MG TAB PO SCH (21:30)
[2017-06-18 06:17] VITALS: BP 97/54; PULSE 68; RESP 17; TEMP 97.6; O2SAT 96
[2017-06-18] MEDS: hydrOXYzine HCL 50 MG TAB PO PRN ×3 (06:39→21:37)
[2017-06-18] MEDS: ESCITALOPRAM OXALATE 10 MG TAB PO SCH (08:43)
--- NOTE | 2017-06-18 12:05 | HHI.PYPN ---
Subjective Chief Complaint: depression with suicidal ideation intent and plan Remarks Patient seen in [place] with nurse hermila, chart reviewed, patient compliant medications. Patient showing some slight increase affect increased eye contact , he is also somewhat more reactive. He denies suicidality today. States the Atarax is helping with anxiety. Patient scheduled for [place] court tomorrow. This time I feel patient has a capacity to sign voluntary, will lift Yeh act patient to sign voluntary. Review of Systems Except as stated in HPI: all other systems reviewed are Neg Mental Status Examination Appearance: Appropriate Consciousness: Alert Orientation: x4 Motor Activity: Normal gait, Other (patient is a little bit visibly tremulous with anxiety.) Speech: Unremarkable Language: Adequate Fund of Knowledge: Adequate Attention and Concentration: Adequate Memory: Unremarkable Mood: Sad, Anxious Affect: Anxious, Other (restricted) Thought Process & Associations: Intact, Logical, Linear Thought Content: Appropriate Hallucination Type: None Delusion Type: None Suicidal Ideation: No Suicidal Plan: No Suicidal Intention: No Homicidal Ideation: No Homicidal Plan: No Homicidal Intention: No Insight: Fair Judgment: Poor Results Vitals/IOs Vital Signs Date Time Temp Pulse Resp B/P (MAP) Pulse Ox O2 Delivery O2 Flow Rate FiO2 06/18/17 06:17 97.6 68 17 97/54 (98) 96 Assessment & Plan Problem List: (1) Severe recurrent major depression without psychotic features ICD Codes: F33.2 - Major depressive disorder, recurrent severe without psychotic features Assessment & Plan Estimated LOS: days patient continues depressed though he denies suicidality today. Placement compliant with medications. Will lift Yeh act patient may sign voluntary today Justification for Cont. Inpt. At this time patient will decompensate then placed in a lower level of care Discharge Planning Placement may become somewhat problematic Request HC Surrog/Guard Advoc?: No Henrry Han MD Jun 18, 2017 12:05
[2017-06-18 18:00] VITALS: BP 150/76; PULSE 66; RESP 18; TEMP 97.3; O2SAT 99
[2017-06-18] MEDS: ARIPiprazole 10 MG TAB PO SCH (21:37)
[2017-06-19 06:43] VITALS: BP 112/58; PULSE 70; RESP 16; TEMP 97.3; O2SAT 97
--- NOTE | 2017-06-19 07:46 | PD.TTN ---
Patient Problems 1. Discharge planning 2. Medication compliance 3. Knowledge deficit 4. Lack of coping skills Progress Toward Goals Provider Present: Dr. Jessenia Han Provider Input: Dr. Han's treatment team met to discuss patient's treatment plan, discharge, and medication. Patient is compliant with medication. Patient denies suicidal ideation. Yeh Act has been lifted and patient signed voluntarily. Nurse(s) Input: Patient's nurse Jumana reports patient is depressed affect flat. Medication has been increased. Patient reports mood is improved. Psychiatric Counselors Present: TIFFANIE GuzmanViolet Psych Therapist Input: Patient presents less depressed. Patient is compliant with medication. Patient's medication has been increased. Patient denies suicidal and homicidal ideation. Patient will remain on unit until stablized. Group Spec/RT/OT/DENTON Present: Johnny Fang OT Group Spec/RT/OT/DENTON Input: Patient does not attend groups Fadumo RuvalcabaViolet Jun 19, 2017 07:46
[2017-06-19] MEDS: ESCITALOPRAM OXALATE 10 MG TAB PO SCH (08:35)
[2017-06-19] MEDS: hydrOXYzine HCL 50 MG TAB PO PRN (09:15)
[2017-06-19] MEDS ORDERED: ESCI20TA PO (11:31)
[2017-06-19] MEDS ORDERED: ARIP1TAB12 PO (11:31)
--- NOTE | 2017-06-19 11:35 | HHI.DS ---
Psychiatry Discharge Summary Inpatient Psychiatric care?: Yes Advance Directive: No Reason Not Provided: not available Mental Health AdvanceDirective: No Health Care Proxy: No Admission Admission Date Jun 12, 2017 at 20:04 Admission Diagnosis: (1) Severe recurrent major depression without psychotic features ICD Code: F33.2 - Major depressive disorder, recurrent severe without psychotic features Brief History Pt seen and discussed with staff. Chart reviewed. Pt is a 56YOWM admitted to [facility] [place] a BA after [facility] Pt seen and discussed with staff. He continues to endorse suicidal ideation with plan. He has numerous stressors including financial and feels hopeless and helpless. He is compliant with medications and denies side effects. Tobacco Use In Past 30 Days: 5 or More Cigarettes/Day Alcohol Use: Monthly or Less Hospital Course Patient's initial depression melancholy a anhedonia suicidality slowly resolved with his participation in the milieu and medication management and adjustment. His affect slowly improved socialization improved though he never was a retraction. Patient seen today with nurse Kaya he is alert oriented calm cooperative with improved affect, improved eye contact, more reactive with occasional small smile. He denies suicidality homicidality voices or visions. I did talk with his sister Sonal lives with their mother. She is willing to have the patient come and stay with them for as long as it takes him to get on his feet. Patient is excited about this. At this time I feel patient is but maximum benefit of this hospitalization. Thus to be discharged today to his sister he'll be given is p.m. meds prior to her sister picked him up on 5 PM. This allow [facility] to get them process is [facility] Results Blood Pressure 112 / 58 Vital Signs Date Time Temp Pulse Resp B/P (MAP) Pulse Ox O2 Delivery O2 Flow Rate FiO2 06/19/17 06:43 97.3 70 16 112/58 (76) 97 Laboratory Results Test 06/13/17 08:35 Cholesterol Level 126 MG/DL (120-200) HDL Cholesterol 29.9 MG/DL (40.0-60.0) Hemoglobin A1c 4.8 % (4.3-6.0) LDL Cholesterol 60 MG/DL (0-99) Triglycerides Level 181 MG/DL (42-150) Summary of Procedures None done Pending results at discharge: No Medications # of Antipsychotic meds at D/C: 1 Approp Antipsych med options 1 - Minimum of three failed multiple trials of monotherapy. 2 - Documented plan to taper to monotherapy due to previous use of multiple meds OR cross-taper in progress at D/C. 3 - Documentation of augmentation of Clozapine. 4 - Justification other than those listed in allowable values 1-3, document here : Discharge Discharge Date: Jun 19, 2017 Discharge Diagnosis: (1) Severe recurrent major depression without psychotic features Diagnosis: Principal ICD Code: F33.2 - Major depressive disorder, recurrent severe without psychotic features Pt Condition on Discharge: Stable Discharge Disposition: Discharge Home Discharge Instructions Diet Instructions: As Tolerated, No Restrictions Activities you can perform: Regular-No Restrictions Scheduled Appointment: [place] [facility] Discharge Time > 30 minutes Mental Status Examination Appearance: Appropriate Consciousness: Alert Orientation: x4 Motor Activity: Normal gait, Other (patient is a little bit visibly tremulous with anxiety.) Speech: Unremarkable Language: Adequate Fund of Knowledge: Adequate Attention and Concentration: Adequate Memory: Unremarkable Mood: Sad, Anxious Affect: Anxious, Other (restricted) Thought Process & Associations: Intact, Logical, Linear Thought Content: Appropriate Hallucination Type: None Delusion Type: None Suicidal Ideation: No Suicidal Plan: No Suicidal Intention: No Homicidal Ideation: No Homicidal Plan: No Homicidal Intention: No Insight: Fair Judgment: Poor Discharge/Advance Care Plan Health Problems: (1) Severe recurrent major depression without psychotic features Goals to promote your health * To prevent worsening of your condition and complications * To maintain your health at the optimal level Directions to meet your goals Take your medications as prescribed Follow your dietary instruction Follow activity as directed Keep your appointments as scheduled Take your immunizations and boosters as scheduled If your symptoms worsen call your PCP, if no PCP go to Urgent Care Center or Emergency Room For 24/ questions related to your inpatient stay or results of tests pending at discharge, please contact Dr. Henrry Han at Smoking is Dangerous to Your Health. Avoid second hand smoking Henrry Han MD Jun 19, 2017 11:35
== END 2017-06-19 14:15 | disposition home or self-care (01) | DRG 885 ==
LOC: NEPJ 14:28 → NEDA 20:04 → H260 21:15
PROVIDERS: ADMIT Psychiatry & Neurology Psychiatry; ATTEND Psychiatry & Neurology Psychiatry
DX: F33.2 Major depressive disorder, recurrent severe without psychotic features (principal); R45.851 Suicidal ideations; I25.10 Atherosclerotic heart disease of native coronary artery without angina pectoris; F17.210 Nicotine dependence, cigarettes, uncomplicated; F12.90 Cannabis use, unspecified, uncomplicated; I25.2 Old myocardial infarction; Z95.1 Presence of aortocoronary bypass graft; Z91.5 Personal history of self-harm
CPT/HCPCS: 80048; 80053; 80061; 80307; 83036; 85025; 93005; 99285